=== PATIENT | female | born 2000 | race Caucasian/White ===

== ENCOUNTER 2022-05-07 23:28 | Emergency (ER) | payer OTHER, SELFPAY ==
[2022-05-07 23:38] VITALS: BP 128/82; PULSE 126; RESP 20; TEMP 37.2; O2SAT 99; BMI 24.4
[2022-05-08 00:10] VITALS: O2SAT 98
--- NOTE | 2022-05-08 00:12 | ED.GENADULT ---
HPI - General Adult General Date Seen: 05/08/22 Chief complaint: Unspecified Complaint, Adult Stated complaint: hard time breathing,cold sweats. Time Seen by Provider: 05/08/22 00:01 Source: patient Mode of arrival: ambulatory Limitations: no limitations History of Present Illness HPI narrative: Elva is a 21 year old female with no past medical history presents to the ED with with mother hard time breathing, cold sweats. Patient states that since Thanksgiving she has had intermittent cold sweats and chills, she developed a cough over the last 2 days, nonproductive, she does not smoke cigarettes, history of any asthma, she is unsure about fevers, she has not had any sick contacts. She has been eating and drinking but last, she denies any nausea vomiting, no diarrhea, she denies any chest pain or abdominal pain, she does feels it gets hard to breathe this this evening and last night, hard to take in a full breath. Patient has had some mild body aches, she denies any urinary complaints, her menstrual cycle has been normal. This she has not had any headache, ear pain or sore throat, she denies any sinus congestion. She is up-to-date on immunizations. No history of any pneumonia. Related Data Home Medications Medication Instructions Recorded Confirmed No Known Home Medications 05/07/22 05/07/22 Allergies Allergy/AdvReac Type Severity Reaction Status Date / Time Penicillins Allergy Mild Hives Verified 05/07/22 23:46 Review of Systems Status of ROS: Reports: 10 or more systems reviewed and unremarkable except as noted in History and below [facility] Medical History (Updated 05/08/22 @ 01:30 by Lenin Faria MD) No significant past medical history Surgical History (Updated 05/08/22 @ 00:37 by Lambert Harris RN) No significant past surgical history Social History Smoking Status: Never smoker Do you use any of these nicotine containing products: None Second hand tobacco smoke exposure: No How often do you have a drink containing alcohol: never How often do you have six or more drinks on one occasion: Never AUDIT-C Alcohol total score: 0 Non-prescribed substance use: denies use Exam Narrative: Exam Narrative: General: No obvious distress sitting comfortably HEENT: Clear middle ear effusions bilaterally, pupils equal round reactive to light, extraocular muscles intact Neck: Supple, full range of motion Heart: Normal sinus rhythm S1-S2 Lungs: Clear to auscultation bilaterally, no wheezing, rhonchi, rales or stridor Abdomen: Soft nontender, bowel sounds present, no hepatosplenomegaly. Muscle skeletal: Moving upper lower extremities with no difficulty Neuro: Alert awake and oriented x3 Const: Vital Signs, click to edit/add: Vital Signs - 24 hr 05/07/22 23:38 05/08/22 00:53 05/08/22 00:53 Temperature 99.0 F 99.0 F 99.0 F Pulse Rate [Right Pulse Oximeter] 126 H Respiratory Rate 20 Blood Pressure [Ri ght Upper Arm] 128/82 Pulse Oximetry 99 Oxygen Delivery Me thod Room Air 05/08/22 01:14 05/08/22 00:10 Temperature Pulse Rate [Right Pulse Oximeter] 112 H Respiratory Rate 20 Blood Pressure [Ri ght Upper Arm] 132/78 Pulse Oximetry 99 98 Oxygen Delivery Me thod Room Air Course Course Hospital Course: 12:00AM: AIDET performed. Vitals show tachycardia, no hypoxia, mild temperature 99.0?, workup will include COVID/influenza/RSV swabs, will also obtain CBC, CRP, CMP, monospot and D-dimer, suspect viral syndrome, exam is otherwise normal, likely obtain XR chest PA and lateral. Patient has no pain at this time. Patient is tolerating orals, no IV to be placed. Will give Motrin 400 mg and Tylenol 1 g for her headache. Differential diagnosis include, COVID-19, influenza, RSV bronchiolitis, strep pharyngitis, infectious mononucleosis, viral illness, strep pneumonia, viral pneumonia, pulmonary embolism, pneumothorax, as well as other etiologies. Reevaluation(s) Reevaluation #1: patient and mother updated on her lab results, cbc showed a pancytopenia, with elevated LFT's, consistent with positive monospot and infectious mononucleosis. Patient also had elevated D-dimer at 2.58, seems less likely pulmonary embolism more likely due to viral illness, will still obtain CT chest PE protocol, patient and mother were in agreement, Time: 01:13 Reevaluation #2: patient and mother updated on her imaging results. No pulmonary embolism to the level of the proximal segmental pulmonary arteries. Mild splenomegaly. Nonspecific, but can be seen in viral illness.Incidental 5 millimeter right upper lobe pulmonary nodule, likely infectious/inflammatory in etiology. no consolidation or pneumothorax. patient is feeling better after the above care given. Plan to discharge. Time: 02:05 Vital Signs Vital signs: Initial Vital Signs Temperature 99.0 F 05/07/22 23:38 Temperature Source Temporal Artery Scan 05/07/22 23:38 Pulse Rate 126 H 05/07/22 23:38 Respiratory Rate 20 05/07/22 23:38 Blood Pressure 128/82 05/07/22 23:38 Blood Pressure Mean 97 05/07/22 23:38 Blood Pressure Position Sitting 05/07/22 23:38 Pulse Oximetry 99 05/07/22 23:38 Oxygen Delivery Method 05/07/22 23:38 Vital Signs Temperature 99.0 F 05/07/22 23:38 Pulse Rate 126 H 05/07/22 23:38 Respiratory Rate 20 05/07/22 23:38 Blood Pressure 128/82 05/07/22 23:38 Pulse Oximetry 99 05/07/22 23:38 Oxygen Delivery Method 05/07/22 23:38 Temperature 99.0 F 05/08/22 00:53 Pulse Rate 112 H 05/08/22 01:14 Respiratory Rate 20 05/08/22 01:14 Blood Pressure 132/78 05/08/22 01:14 Pulse Oximetry 99 05/08/22 01:14 Oxygen Delivery Method 05/08/22 01:14 Medical Decision Making Lab Data Labs: Lab Results 05/07/22 05/08/22 05/08/22 Range/Units 23:35 00:40 00:40 WBC 3.78 L (4.50-11.00) K/uL RBC 3.51 L (4.00-5.20) m/uL Hgb 10.4 L (12.0-16.0) gm/dL Hct 30.2 L (33.0-51.0) % MCV 86 (80-100) fL MCH 30 (26-34) pg MCHC 34 (32-36) gm/dL RDW Coeff of Dequan 13.4 (11.5-15.5) % Plt Count 131 L (140-440) K/uL Neut % (Auto) 35.2 L (42.0-72.0) % Lymph % (Auto) 57.4 H (20-44) % Donley % (Auto) 6.3 (0.0-11.0) % Eos % (Auto) 0.3 (0.0-7.0) % Baso % (Auto) 0.3 (0.0-3.0) % Neut # (Auto) 1.30 L (1.7-7.0) K/uL Lymph # (Auto) 2.20 (0.90-2.90) K/uL Donley # (Auto) 0.20 (0.00-0.90) K/UL Eos # (Auto) 0.00 (0.00-0.50) K/uL Baso # (Auto) 0.00 (0.00-0.30) K/uL Abs Immat Gran (auto) 0.00 (0.00-0.30) K/uL Imm/Tot Granulo (auto) 0.5 % D-Dimer Quant (PE/DVT) 2.58 H (0.00-0.50) ug/ml Sodium (135-149) mmol/L Potassium (3.6-5.1) mmol/L Chloride (96-114) mmol/L Carbon Dioxide (20-32) mmol/L BUN (5-24) mg/dL Creatinine (0.5-1.5) mg/dL Estimated Creat Clear Estimated GFR ml/min Glucose (60-115) mg/dL Calcium (8.4-10.6) mg/dL Total Bilirubin (0.1-1.5) mg/dL AST (12-35) U/L ALT (4-35) U/L Alkaline Phosphatase (40-150) U/L C-Reactive Protein (0.5-1.0) mg/dL Total Protein (6.0-8.3) g/dL Albumin (3.3-5.0) g/dL SARS-CoV-2 (PCR) Negative SARS-CoV-2 (Negative) Monoscreen (Negative) Influenza Type A (PCR) Negative PCR FLU A (Negative) Influenza Type B (PCR) Negative PCR FLU B (Negative) RSV (PCR) Negative PCR RSV (Negative) 05/08/22 05/08/22 Range/Units 00:40 00:40 WBC (4.50-11.00) K/uL RBC (4.00-5.20) m/uL Hgb (12.0-16.0) gm/dL Hct (33.0-51.0) % MCV (80-100) fL MCH (26-34) pg MCHC (32-36) gm/dL RDW Coeff of Dequan (11.5-15.5) % Plt Count (140-440) K/uL Neut % (Auto) (42.0-72.0) % Lymph % (Auto) (20-44) % Donley % (Auto) (0.0-11.0) % Eos % (Auto) (0.0-7.0) % Baso % (Auto) (0.0-3.0) % Neut # (Auto) (1.7-7.0) K/uL Lymph # (Auto) (0.90-2.90) K/uL Donley # (Auto) (0.00-0.90) K/UL Eos # (Auto) (0.00-0.50) K/uL Baso # (Auto) (0.00-0.30) K/uL Abs Immat Gran (auto) (0.00-0.30) K/uL Imm/Tot Granulo (auto) % D-Dimer Quant (PE/DVT) (0.00-0.50) ug/ml Sodium 136 (135-149) mmol/L Potassium 3.9 (3.6-5.1) mmol/L Chloride 102 (96-114) mmol/L Carbon Dioxide 27 (20-32) mmol/L BUN 11 (5-24) mg/dL Creatinine 0.6 (0.5-1.5) mg/dL Estimated Creat Clear 156.31 Estimated GFR 132 ml/min Glucose 95 (60-115) mg/dL Calcium 8.7 (8.4-10.6) mg/dL Total Bilirubin 1.8 H (0.1-1.5) mg/dL AST 118 H (12-35) U/L ALT 123 H (4-35) U/L Alkaline Phosphatase 134 (40-150) U/L C-Reactive Protein 4.6 H (0.5-1.0) mg/dL Total Protein 7.2 (6.0-8.3) g/dL Albumin 4.1 (3.3-5.0) g/dL SARS-CoV-2 (PCR) (Negative) Monoscreen POSITIVE A (Negative) Influenza Type A (PCR) (Negative) Influenza Type B (PCR) (Negative) RSV (PCR) (Negative) Discharge Plan Discharge Clinical Impression: Infectious mononucleosis Patient Disposition: Home, Self-Care Condition: Improved Instructions: Mononucleosis (ED) Additional Instructions: To continue with Tylenol and or Motrin every 4-6 hours as needed for headache and symptoms. To continue to push the fluids to prevent dehydration, to follow up with primary care provider as needed in the next 7-10 days. Return if worsening symptoms. Activity Level: Activity as Tolerated and No strenuous activity Discharge Diet: Regular Prescriptions: No Action No Known Home Medications Stand Alone Forms: Make Meaning Info Instructions
[2022-05-08 00:26] LABS: PCR FLU A Negative PCR FLU A (Negative); PCR FLU B Negative PCR FLU B (Negative); PCR RSV Negative PCR RSV (Negative)
[2022-05-08 00:27] LABS: SARS PCR* Negative SARS-CoV-2 (Negative)
[2022-05-08 00:46] LABS: Basophils Percent Auto 0.3 % (0.0-3.0); Eosinophils Percent Auto 0.3 % (0.0-7.0); Hematocrit 30.2 % (33.0-51.0); Hemoglobin* 10.4 gm/dL (12.0-16.0); Immature Granulocytes Pct Auto 0.5 %; Lymphocytes Percent Auto 57.4 % (20-44); Mean Corpuscular HGB Conc 34 gm/dL (32-36); Mean Corpuscular Hemoglobin 30 pg (26-34); Mean Corpuscular Volume 86 fL (80-100); Monocytes Percent Auto 6.3 % (0.0-11.0); Neutrophils Percent Auto 35.2 % (42.0-72.0); Platelet Count* 131 K/uL (140-440); RDW Coefficient of Variation % 13.4 % (11.5-15.5); Red Blood Count 3.51 m/uL (4.00-5.20); White Blood Count* 3.78 K/uL (4.50-11.00)
[2022-05-08 00:48] LABS: Slide Review Reflex No
--- OUTSIDE RECORDS SUMMARY | 2022-05-08 00:48 | XMS_ITS | Clinical Summary ---
:2001 Author Organization [facility] [place] [address] Care Team Providers Name Role Phone Charlene Rangel MD Primary Care Provider [phone] Allergies Active Allergy Reactions Severity Noted Date Comments Penicillin V Potassium Rash Medium 05/22/2018 Medications Medication Sig Dispensed Refills Start Date End Date Status aluminum chloride Apply topically to 60 mL 4 12/22/2018 Active (DRYSOL) 20 % external affected area(s) solutionIndications: at bedtime. Hyperhidrosis Active Problems No known active problems Immunizations Name Administration Dates Next Due AMB Influenza, IIV3 (Age >=3 04/27/2008 years)(Flu Clinic Only) DTaP 02/12/2007, 01/27/2003, 04/29/2002, 02/26/2002, 2001 HIB-HepB (Comvax) 01/27/2003, 02/26/2002, 2001 Hepatitis A (Peds) 06/28/2013, 11/17/2012 Human Papilloma Virus Vaccine 06/28/2013, 02/03/2013, 2012 Inactivated Polio Vaccine 02/12/2007, 04/29/2002, 02/26/2002 , 2001 Influenza A (H1N1), Inactivated (Age 0106/19/2009 >=3 Years) Influenza A (H1N1), Live Intranasal 04/27/2009 Influenza, IIV3 (Age >=3 years) 04/20/2010, 04/27/2008, 12/06/2006, 08/21/2006, 07/23/2006 Influenza, IIV4 06/27/2020, 05/22/2018, 07/21/2017 MMR 02/12/2007, 10/28/2002 Meningococcal Vaccine (Menveo) 12/15/2017, 02/03/2013 Pneumococcal conj 7-Valent (Prevnar 7) 01/27/2003, 2, 02/26/2002, 2001 Tdap 11/17/2012 Varicella Vaccine 02/12/2007, 10/28/2002 Family History Medical History Relation Name Comments Kidney failure Brother kidney transplan t Good Health Father Good Health Mother Relation Name Status Comments Brother Father Mother Social History Tobacco Use Types Packs/Day Years Used Date Never Smoker Smokeless Tobacco: Never Used Tobacco Cessation: Counseling Given: Yes Alcohol Use Standard Drinks/Week Comments No 0 (1 standard drink = 0.6 oz pure alcoho l) Sex Assigned at Date Recorded Not on file Obstetrics History Para Term AB IAB SAB Ectopic Multiple Living Live Births 0 0 0 0 0 0 0 0 0 0 0 Last Filed Vital Signs Vital Sign Reading Time Taken Comments Blood Pressure 129/78 06/27/2020 1:22 PM OPERATER Pulse 71 06/27/2020 1:22 PM OPERATER Temperature 36.8 ??C (98.2 ??F) 04/29/2019 9:03 AM OPERATER Respiratory Rate - - Oxygen Saturation 100% 06/27/2020 1:22 PM OPERATER Inhaled Oxygen Concentration - - Weight 77.3 kg (170 lb 6.4 oz) 06/27/2020 1:22 PM OPERATER Height 173.7 cm (5' 8.39) 06/27/2020 1:22 PM OPERATER Body Mass Index 25.62 06/27/2020 1:22 PM OPERATER Plan of Treatment Upcoming Encounters Date Type Specialty Care Team Description 05/08/2022 Office Visit Yolanda Leach PA [phone] (Wo rk) Health Maintenance Due Date Last Done Comments COVID-19 vaccine series (#1) 04/25/2002 HIV for age 15-65 10/23/2016 Hepatitis C screening for age 0510/24/2019 18-79 Chlamydia for age 16-24 04/29/2020 04/29/2019 BMI (ht and wt on same day) for 06/27/2021 06/27/2020 age 18+ Depression screening for age 12+ 06/27/2021 06/27/2020, , 12/22/2018, Additional history exists Well Child Check for age 3-20 06/27/2021 06/27/2020, 2018, 12/15/2017, Additional history exists Influenza for age 9-49 02/07/2022 06/27/2020, 05/22/2018, 07/21/2017, Additional history exists Tetanus booster 11/17/2022 11/17/2012 Tdap Completed 11/17/2012 HPV series for age 9-26 Completed 06/28/2013, 02/03/2013, 11/17/2012 Meningococcal series for age 11-21 Completed 12/15/2017, 0 02/03/2013 Results Not on filefrom Last 3 Months Insurance Payer Benefit Plan / Subscriber ID Effective Dates Phone Addre ss Type Group PREFERRED ONE [employer] [id number] 2016-Present [address] [address] [place] [address] Care Teams Billing Clerk Relationship Specialty Start Date End Date Charlene Rangel MD PCP - General 10/25/05 [address] [place], [place] [id number]
[2022-05-08 00:53] VITALS: TEMP 37.2
[2022-05-08] MEDS: ACETAMINOPHEN 500 MG TABLET 1000 MG PO (00:53)
[2022-05-08] MEDS: IBUPROFEN 400 MG TABLET PO (00:53)
[2022-05-08 01:01] LABS: Chloride* 102 mmol/L (96-114); Sodium* 136 mmol/L (135-149)
[2022-05-08 01:02] LABS: Albumin* 4.1 g/dL (3.3-5.0); Potassium* 3.9 mmol/L (3.6-5.1)
[2022-05-08 01:05] LABS: Alanine Aminotransferase* 123 U/L (4-35); Alkaline Phosphatase* 134 U/L (40-150); Aspartate Amino Transferase* 118 U/L (12-35); Bilirubin Total* 1.8 mg/dL (0.1-1.5); Blood Urea Nitrogen* 11 mg/dL (5-24); Calcium* 8.7 mg/dL (8.4-10.6); Carbon Dioxide* 27 mmol/L (20-32); Creatinine* 0.6 mg/dL (0.5-1.5); Est. Creatinine Clearance* 156.31; Estimated Glomerular Filt Rate 132 ml/min; Glucose* 95 mg/dL (60-115); Mono Screen* POSITIVE (Negative); Total Protein* 7.2 g/dL (6.0-8.3)
[2022-05-08 01:08] LABS: C Reactive Protein* 4.6 mg/dL (0.5-1.0); D Dimer Quantitative* 2.58 ug/ml (0.00-0.50)
[2022-05-08 01:14] VITALS: BP 132/78; PULSE 112; RESP 20; O2SAT 99
--- NOTE | 2022-05-08 01:14 | CRLHL7_ITS ---
For Patients: As a result of the Century Cures Act, medical imaging exams and procedure reports are released immediately into your electronic medical record. You may view this report before your referring provider. If you have questions, please contact your health care provider. INDICATION: Shortness of breath. TECHNIQUE: CT chest PE was acquired with 95 cc Isovue 370 IV contrast. COMPARISON: None. FINDINGS: Heart and vasculature: Contrast opacification of the pulmonary arterial tree is adequate. No sign of pulmonary embolism. Heart size is normal. Thoracic aorta and pulmonary artery are normal in caliber. Lungs and pleura: Incidental 5 millimeter right upper lobe pulmonary nodule, likely infectious/inflammatory etiology. No suspicious nodules or infiltrates. No pleural effusions, pleural thickening, or pneumothorax. Lymph nodes/mediastinum: No mediastinal, hilar, or axillary adenopathy. Chest wall: No masses. Upper abdomen: No acute or significant findings. Mild splenomegaly. Possible mild hepatic steatosis, on this limited single-phase study. Bones: Unremarkable for age. IMPRESSION: No pulmonary embolism to the level of the proximal segmental pulmonary arteries. Mild splenomegaly. Nonspecific, but can be seen in viral illness. Incidental 5 millimeter right upper lobe pulmonary nodule, likely infectious/inflammatory in etiology. Please note that all CT scans at this facility use dose modulation, iterative reconstruction, and/or weight-based dosing when appropriate to reduce radiation dose to as low as reasonably achievable. Dictated by Lenin Sandy MD @ 05/08/2022 1:59:39 AM (Electronically Signed)
[2022-05-08 02:31] VITALS: BP 120/74; PULSE 95; RESP 20; O2SAT 99
[2022-05-08 02:33] VITALS: BP 120/74; PULSE 95; RESP 20; TEMP 37.2
== END 2022-05-08 02:33 | disposition home or self-care (01) ==
PROVIDERS: Emergency Provider Student in an Organized Health Care Education/Training Program; PCP Pediatrics
DX: B27.90 Infectious mononucleosis, unspecified without complication (principal)
CPT/HCPCS: 36415; 71260; 80053; 84702; 85025; 85379; 86140; 86308; 87502; 87634; 87635; 94761; 99283; 99284; A9270; Q9967